=== PATIENT | female | born 1950 | race Caucasian/White ===

== ENCOUNTER 2023-03-21 06:16 | Day surgery (SDC) | payer OTHER ==
[~2023-03-21] VITALS: Ht 170.2 cm; Wt 131.5 kg
[2023-03-21] MEDS ORDERED: PROPOFOL 200MG/ 20ML VIAL (DIPRIVAN) IV ONE (07:20)
[2023-03-21] MEDS ORDERED: LR 1,000 ML IV.SOLN IV ONE (07:20)
[2023-03-21] MEDS ORDERED: LIDOCAINE 2%, 20 ML MDV ONE (07:20)
[2023-03-21 11:38] VITALS: BP_SYST 126
== END 2023-03-21 09:10 | disposition home or self-care (01) ==
LOC: SDS 06:16 → SMU 06:17 → SDS 09:10
PROVIDERS: ATTEND Internal Medicine Gastroenterology
DX: R10.32 Left lower quadrant pain (principal); R19.4 Change in bowel habit; K64.9 Unspecified hemorrhoids; I10 Essential (primary) hypertension; E11.9 Type 2 diabetes mellitus without complications; E66.01 Morbid (severe) obesity due to excess calories; K21.9 Gastro-esophageal reflux disease without esophagitis; M81.0 Age-related osteoporosis without current pathological fracture; M19.90 Unspecified osteoarthritis, unspecified site; K58.9 Irritable bowel syndrome, unspecified; I48.91 Unspecified atrial fibrillation; F32.A Depression, unspecified; J44.9 Chronic obstructive pulmonary disease, unspecified; E78.5 Hyperlipidemia, unspecified; Z68.42 Body mass index [BMI] 45.0-49.9, adult; Z79.899 Other long term (current) drug therapy
CPT/HCPCS: 45378; 82962; 93005; J2001; J2704; J7120